=== PATIENT | female | born 1975 | race Caucasian/White ===

== ENCOUNTER → 2016-08-18 | Outpatient (CLI) | payer BC ==
[~2016-08-18] VITALS: Ht 167.6 cm; Wt 65.3 kg
[~2016-08-18] MED LIST: BACTRIM DS TAB1 EACH PO; CELEXA20 MG PO; CIPROFLOXACIN500 M1 PO; GABAPENTIN 100100 MG PO; GRALISE300 MG PO; HYDROCODONE-AP1 EAC6; HYDROCODONE-AP1 EAC6 PO; IBUPROFEN 600600 M1 PO; KEFLEX500 MG PO; MEDROLDOSEPACK PO; MOBIC15 MG PO; NAPROSYN500 MG PO; NOHOMEMEDICATIONS; NORCO 5-325 TA1 EACH PO; PREDNISONE 20 M20 MG PO; PROZAC20 MG; VALIUM5 MG PO; ZPAK PO
--- NOTE | ~2016-08-18 | HPC ---
[facility] [place] [address] PAIN MANAGEMENT CONSULTATION Name: FELISA KIDD VIVIANE Room #: REG [facility]..#: [id number] Admission: 08/18/16 Attend Phys: Azeem Chance MD Discharge: Date of : 75 Report #: [id number] THIS REPORT FOR: //name// CC: Azeem Vaughn DATE OF SERVICE: 08/18/2016 CHIEF COMPLAINT: "Pain in my back and down into the legs." HISTORY OF PRESENT ILLNESS: The patient is a 41-year-old female who has been referred to the pain clinic for evaluation of back and leg pain. The patient has been experiencing pain and discomfort in the low back area. She has had problems with her back and has undergone surgery at the L5-S1 area in the past. She now is experiencing pain in the lower back area, which radiates into both buttocks, left and right. She described it as 8/10. She notes some numbness, tingling and weakness in both legs down into her feet. She describes her discomfort as constant, burning, shooting, crushing, sharp, stabbing and tender. Notes that the pain improves if she lies down and has noted improvement with use of heat. She has been experiencing pain in the left hip area as well. PAST MEDICAL HISTORY: Left kidney mass, anxiety. PAST SURGICAL HISTORY: Tonsillectomy 1984, tubal ligation 2004, appendectomy/gallbladder 2010, back surgery 2007. ALLERGIES: FLEXERIL cause migraines, TRAMADOL cause migraines. MEDICATIONS: Gabapentin 100 mg t.i.d., Celexa 20 mg daily. SOCIAL HISTORY: Smokes cigarettes, one-half pack of cigarettes per day. Drinks alcohol on special occasion. Denies use of recreational drugs. FAMILY HISTORY: She has 5 children, 3 of whom live at home with her now. REVIEW OF SYSTEMS: Questionnaire in the chart indicates of 14 areas of review, chronic sinus problems, loss of appetite, bowel changes, lightheadedness, numbness and tingling sensation in the lower extremities, depression, insomnia, fatigue, weakness, otherwise unremarkable. LABORATORY DATA: 1. MRI of the lumbar spine dated 05/04/2016, there is significant disk space narrowing with reactive marrow changes at L5-S1 with minimal retrolisthesis of L5-S1. Alignment otherwise satisfactory. 2. L5-S1 significant disk space narrowing with combination of both Modic 1 and Modic 2 endplate degenerative changes. Moderate posterior ridging and bulging [facility] [address] [place] [address] PAIN MANAGEMENT CONSULTATION Name: FELISA KIDD Room #: REG CLI [facility].#: [id number] Admission: 08/18/16 Attend Phys: Azeem Chance MD Discharge: Date of : 75 Report #: [id number] is identified as the canal tapers. The L5-S1 moderate diffuse posterior ridging without focal disk protrusion. 3. Some degenerative changes contact the right S1 nerve root, including the posterior ridging and facet degenerative changes. PHYSICAL EXAMINATION: Height 5 feet 6 inches, weight 65 kilograms, BMI 23.3. The patient has not fallen in the last 3 months. Does have pain and discomfort to palpation in the left lateral hip in the area of the bursa. Has pain and discomfort to palpation in the right and left posterior superior iliac spine areas. Experiences pain and discomfort with radiation around the left leg in the L4-L5 distribution. Has perception of numbness and tingling in both legs with some discomfort down into her feet. Walks with an antalgic gait. Left and right lateral bending, left and right lateral rotation are somewhat guarded. IMPRESSION: 1. Lumbar radiculopathy at the L4-L5 distribution. 2. Depression, takes Celexa. RECOMMENDATIONS: We discussed treatment options with the patient. Risks and benefits of the procedure were explained. A model was used to indicate the area of probable pathology. The patient elects to proceed. PROCEDURE NOTE: The patient was placed in the prone position. Her back was sterilely prepped with Betadine. A 0.25% bupivacaine was placed. A total of 80 mg Depo-Medrol, 40 mg triamcinolone was injected after appropriate placement of a 17-gauge Tuohy needle. The patient tolerated the procedure well. There were no complications. She remained in the pain clinic for an appropriate amount of time. She will follow up in the future as needed. Hopefully, she continues to improve. She will call us if she has any problems with her medications. We would like to thank you for letting us participate in her care. We hope she continues to improve. <ELECTRONICALLY SIGNED> By: Azeem Chance MD 08/31/16 [id number] [id number] Azeem Chance MD /donald
[2016-08-18 10:15] VITALS: BP 111/75
== END | disposition home or self-care (01) ==
LOC: PAIN 07:14
DX: M54.16 Radiculopathy, lumbar region (principal); F32.9 Major depressive disorder, single episode, unspecified; F41.9 Anxiety disorder, unspecified; F17.210 Nicotine dependence, cigarettes, uncomplicated; Z98.890 Other specified postprocedural states; Z90.49 Acquired absence of other specified parts of digestive tract

== ENCOUNTER → 2016-11-04 | Outpatient (CLI) | payer BC | LOC: RAD 11:39 | DX: Z12.31 Encounter for screening mammogram for malignant neoplasm of breast (principal) ==

== ENCOUNTER → 2016-11-11 | Outpatient (CLI) | payer BC | LOC: ULTRA 10:29 | DX: N63 Unspecified lump in breast (principal); N60.09 Solitary cyst of unspecified breast ==

== ENCOUNTER → 2016-12-23 | Outpatient (CLI) | payer BC | LOC: RAD 15:05 | DX: S62.524A Nondisplaced fracture of distal phalanx of right thumb, initial encounter for closed fracture (principal); M79.644 Pain in right finger(s); X58.XXXA Exposure to other specified factors, initial encounter; Y93.89 Activity, other specified; Y92.89 Other specified places as the place of occurrence of the external cause; Y99.8 Other external cause status ==

== ENCOUNTER → 2017-09-19 | Outpatient (CLI) | payer OTHER ==
[~2017-09-19] MED LIST changes: +BUTRANS1 EAC3 TRANSDERM; +GRALISE600 MG PO; +HYDROCODONE-AP1 EA11 PO; +MYDAYIS ER 25 M25 MG PO; +VENTOLIN HFA 1818 GM INH; +XANAX 0.5 MG0.5 MG PO
== END ==
LOC: RAD 15:15
DX: R05 Cough (principal)

== ENCOUNTER → 2018-03-14 | Outpatient (CLI) | payer OTHER ==
[~2018-03-14] MED LIST changes: -BUTRANS1 EAC3 TRANSDERM; -GRALISE600 MG PO; -HYDROCODONE-AP1 EA11 PO; -MYDAYIS ER 25 M25 MG PO; -VENTOLIN HFA 1818 GM INH; -XANAX 0.5 MG0.5 MG PO
== END ==
LOC: MRI 10:18
DX: M51.16 Intervertebral disc disorders with radiculopathy, lumbar region (principal); M48.062 Spinal stenosis, lumbar region with neurogenic claudication; N28.1 Cyst of kidney, acquired

== ENCOUNTER → 2018-04-28 | Outpatient (CLI) | payer OTHER ==
[~2018-04-28] VITALS: Ht 167.6 cm; Wt 74.9 kg
[~2018-04-28] MED LIST changes: +BUTRANS1 EAC3 TRANSDERM; +GRALISE600 MG PO; +HYDROCODONE-AP1 EA11 PO; +MYDAYIS ER 25 M25 MG PO; +VENTOLIN HFA 1818 GM INH; +XANAX 0.5 MG0.5 MG PO
--- NOTE | ~2018-04-28 | HPC ---
[facility] [place] [address] PAIN MANAGEMENT CONSULTATION Name: ISABELLAFELISA VIVIANE Room #: REG [facility] MJaylene.#: [id number] Admission: 04/28/18 Attend Phys: Azeem Chance MD Discharge: Date of : 75 Report #: [id number] THIS REPORT FOR: //name// CC: Azeem Vaughn DATE OF SERVICE: 04/28/2018 CHIEF COMPLAINT: Low back pain with pain in the anterior leg. FOLLOWUP HISTORY: The patient is a 42-year-old female, who has been seen in the pain clinic in the past because of lumbar radiculopathy. She has had epidural steroid injections in the past. She returns today indicating pain in the right thigh, hip and with pain radiating down into her leg and involving her foot. She notes pain and discomfort involving 3 of her toes. She has had some chronic pain problems since 2004 as well as 2007. She describes the pain as a constant, burning, shooting, crushing, sharp, and stabbing discomfort. She rates it as a 6/10. She notes pain is exacerbated with bending and walking and some improvement with lying down. She has tried heat. She has tried prednisone and has noticed need for increased use of hydrocodone. She denies any loss of bowel or bladder control at this juncture. PAST MEDICAL HISTORY: She has left kidney mass and anxiety. PAST SURGICAL HISTORY: She has tonsillectomy in 1984, tubal ligation in 2004, appendectomy/cholecystectomy in 2010, and back surgery in 2007. CURRENT MEDICATIONS: Dextroamphetamine, Mydayis ER 25 mg capsules q.24 hours, Xanax 0.5 mg, [place] 5/325 one p.o. q.4-6 hours, Neurontin 300 mg t.i.d., and Celexa 20 mg total of 40 mg daily. ALLERGIES: THE PATIENT IS ALLERGIC TO SOMA, FLEXERIL, WHICH CAUSES MIGRAINES, AND TRAMADOL, WHICH CAUSES MIGRAINES. SOCIAL HISTORY: She smokes cigarettes, one half pack of cigarettes per day. She drinks alcoholic beverages on social occasions. She denies use of recreational drugs. PAIN CLINIC ASSESSMENT AND PQRS: 1. Osteoarthritis. The patient is not being treated for osteoarthritis. 2. Rheumatoid arthritis. The patient has not been treated for rheumatoid arthritis. 3. Pain intensity is 6/10. 4. Fall risk. The patient has not fallen in the last 3 months. 5. Blood thinner. The patient is not on a blood thinning medication. 6. History of hypertension. The patient is not being [place] [address] PAIN MANAGEMENT CONSULTATION Name: FELISA MASON VIVIANE Room #: REG [facility] Aditi.#: [id number] Admission: 04/28/18 Attend Phys: Azeem Chance MD Discharge: Date of : 75 Report #: [id number] 7. Opioid therapy greater than 6 weeks. The patient is not on an opioid regimen. 8. Risk assessment tool 4/moderate risk for opioids. 9. Functional assessment tool 51/70. 10. Recreational drug use. The patient denies use of recreational drugs. 11. Tobacco: The patient is a current tobacco user on a daily basis. We have discussed the benefits of decreasing use of tobacco with the patient. 12. Alcohol: The patient denies use of alcoholic beverages on a regular basis. PHYSICAL EXAMINATION: GENERAL: The patient is a well-developed and well-nourished white female. She appears her stated age. She is alert and oriented x 3. Affect is appropriate. Speech is fluent. Height is 5 feet 6 inches, weight is 165 pounds, and BMI is 26.7. VITAL SIGNS: Blood pressure is 109/78, pulse is 109, respiratory rate is 14, and room air saturation is 98%. HEENT: Normocephalic, atraumatic. Extraocular eye muscles intact. Sclerae nonicteric. Mucous membranes are moist. NECK: Without adenopathy or JVD. HEART: Regular rate. S1, S2. LUNGS: Clear to auscultation without rhonchi or rales. ABDOMEN: Nontender. Bowel sounds present. MUSCULOSKELETAL: Upper extremity muscle strength is judged to be 5/5 for the major muscle groups. The patient is without significant scoliosis, kyphosis, or lordosis. The patient has a well-healed scar in the lower portion of her back. She has pain and discomfort radiating down the right leg in the anterior portion and the lateral portion of her thigh and about the L4-L5 distribution. The patient also has some numbness and tingling down in her foot involving the lateral 3 toes. LABORATORY DATA: MRI of the lumbar spine dated 03/14/2018: 1. L1-L2: Normal. L2-L3: Normal: L3-L4: Normal. L4-L5: Minimal facet arthropathy bilaterally; otherwise, normal. 2. L5-S1. Previous right L5 laminectomy, zwmrszkd-ko-gjztom degenerative disk disease. Mild broad-based disk bulge. Mild facet arthropathy on the right. No spinal stenosis. The right L5 nerve foramen is narrowed. IMPRESSION: 1. Previous right L5 hemilaminectomy. 2. At L5-S1, mild broad-based disk bulge. The disk bulge is slightly improved since the previous study on 04/2016. Lukaiirr-rp-[id number] degenerative disk disease, unchanged. 3. Lumbar radiculopathy with pain radiating down into the right foot and involving the lateral portion of her foot. RECOMMENDATIONS: We have discussed treatment options with the patient. At this [facility] [address] [place] [address] PAIN MANAGEMENT CONSULTATION Name: FELISA MASON VIVIANE Room [facility]: [facility] [id number] Admission: 04/28/18 Attend Phys: Azeem Chance MD Discharge: Date of : 75 Report #: [id number] juncture, we will have the patient try Gralise, she is at 900. We will try to get her to 1800. We will notice whether or not that would be beneficial. The patient will also try Butrans 5 mg per hour patch. She will wear it for 7 days and change to meet 7 days. Hopefully, she will find that this is helpful. If her pain continues and persist, we will consider the possibility of an epidural injection. We would like to thank you for letting us to participate in her care. We hope she continues to improve. <ELECTRONICALLY SIGNED> By: Azeem Chance MD 05/08/18 1125 1431 [id number] Azeem Chance MD /PMT
[2018-04-28 11:04] VITALS: BP 109/78
== END ==
LOC: PAIN 06:49
DX: M51.16 Intervertebral disc disorders with radiculopathy, lumbar region (principal); M96.1 Postlaminectomy syndrome, not elsewhere classified; M79.671 Pain in right foot

== ENCOUNTER → 2018-05-10 | Outpatient (CLI) | payer OTHER ==
[~2018-05-10] VITALS: Ht 167.6 cm; Wt 73.9 kg
--- NOTE | ~2018-05-10 | HPC ---
[facility] [place] [address] [place] [address] PAIN MANAGEMENT CONSULTATION Name: ISABELLAFELISAPeterson PAN Room #: REG [facility] M..#: [id number] Admission: 05/10/18 Attend Phys: Azeem Chance MD Discharge: Date of : 75 Report #: [id number] THIS REPORT FOR: //name// CC: Azeem Vaughn DATE OF SERVICE: 05/10/2018 CHIEF COMPLAINT: "The medication may gave me diarrhea. I was sleepy and mean." FOLLOWUP HISTORY: The patient is a 42-year-old female who has been followed in the pain clinic. As you recall, she has lumbar radiculopathy. She has undergone epidural steroid injection in the past. This was back in 2017. She continues to have pain, which is problematic. She rates it as an 8/10. It significantly impacts her activities of daily living. She was started on Gralise. She found that medication was beneficial and has been beneficial. She had tried to use gabapentin in the past. Gabapentin caused too many side effects. She is able to take the Gralise, notes that the numbness down in her foot has improved. Has less of numb and tingling sensation in the anterior portion of her leg and the L5 distribution. Still has pain in the lower portion of her back. Notes the pain is a sharp, burning, crushing, stabbing discomfort that radiates down still in the L4-L5 distribution of her leg. She states that the Butrans patch caused her to be mean. States that she was quite sleepy during the use of this medication. Also, developed diarrhea. For these reasons, she would like to discontinue use of the Butrans patch. ALLERGIES: SOMA, FLEXERIL CAUSE MIGRAINES, TRAMADOL CAUSE MIGRAINES, BUTRANS CAUSE DIARRHEA, IRRITABILITY. CURRENT MEDICATIONS: Dextroamphetamine, Mydayis ER 25 mg capsules q. 24 hours, Xanax 0.5 mg, [place] 5/325 one p.o. q. 4-6 hours, Celexa 20 mg total of 40 per day. PAIN CLINIC ASSESSMENT AND PQRS: 1. Osteoarthritis. The patient is not being treated for osteoarthritis or rheumatoid arthritis. 2. Pain intensity 03/03. 3. Fall risk. The patient has not fallen in the last 3 months. 4. Blood thinner. The patient is not on a blood thinning medication. 5. Hypertension. The patient is not being treated for hypertension. 6. Opioid therapy greater than 6 weeks. The patient has used hydrocodone to help control her pain. 7. Risk assessment tool 4/moderate risk. 8. Functional assessment tool 51/70. 9. Recreational drug use. The patient denies use of recreational drugs. 10. Tobacco: The patient denies use of tobacco. [address] [address] PAIN MANAGEMENT CONSULTATION Name: FELISA MASON VIVIANE Room #: REG [facility]#: [id number] Admission: 05/10/18 Attend Phys: Azeem Chance MD Discharge: Date of : 75 Report #: [id number] 11. Alcohol: The patient denies use of alcoholic beverages. PHYSICAL EXAMINATION: GENERAL: The patient is a well-developed, well-nourished white female. Appears her stated age. She is alert and oriented x 3. Affect is appropriate. Speech is fluent. HEENT: Normocephalic, atraumatic. Extraocular eye muscles intact. Sclerae not injected. NECK: Without adenopathy or JVD. HEART: Regular rate. S1, S2. LUNGS: Clear to auscultation without rhonchi or rales. ABDOMEN: Nontender. Bowel sounds present. MUSCULOSKELETAL: 1. The patient has pain and discomfort in the lower portion of her back. Complains of pain that radiates down and around the right buttocks area and the L5/4 distribution involving her leg with pain. 2. Well-healed scar in the mid portion of her low back area. 3. The patient complains of some pain in the left side, which feels as though "something is inserted under her back." 4. The patient has noted that the numbness and tingling sensation, which she had in her foot and down into the lateral toes has improved on Gralise. LABORATORY DATA: 1. Previous right L5 laminectomy with continued post-laminectomy syndrome with pain. 2. L5-S1 broad-based disk bulge. This is slightly improved since previous study in 2016. Mild to moderate degenerative disk disease, unchanged. 3. Lumbar radiculopathy with pain radiating down to the right foot involving the lateral portion of her foot. RECOMMENDATIONS: At this juncture, the patient will continue with the Gralise, she is on 1800 mg. Finds that this medication is helpful. We will also have the patient resume use of the hydrocodone 7.5 mg 1 p.o. q. 4 to 6 hours. The patient will stop the Butrans patch. She will return to the pain clinic. If her pain continues to be problematic, we will consider a transforaminal epidural steroid injection in the left L4-L5 area. We would like to thank you for letting us participate in her care. We hope she continues to improve. By: [id number] Azeem Chance MD /ADIA
[2018-05-10 08:51] VITALS: BP 116/78
== END ==
LOC: PAIN 06:58
DX: M51.16 Intervertebral disc disorders with radiculopathy, lumbar region (principal); M79.671 Pain in right foot; M96.1 Postlaminectomy syndrome, not elsewhere classified; Z79.899 Other long term (current) drug therapy

== ENCOUNTER → 2018-06-09 | Outpatient (CLI) | payer OTHER ==
[~2018-06-09] VITALS: Ht 167.6 cm; Wt 74.9 kg
[2018-06-09 09:17] VITALS: BP 116/78
== END ==
LOC: PAIN 07:10
DX: M54.5 Low back pain (principal); R20.2 Paresthesia of skin; M79.604 Pain in right leg; G89.29 Other chronic pain; F17.210 Nicotine dependence, cigarettes, uncomplicated; Z72.89 Other problems related to lifestyle; Z79.899 Other long term (current) drug therapy; Z79.891 Long term (current) use of opiate analgesic

== ENCOUNTER → 2018-07-07 | Outpatient (CLI) | payer OTHER ==
[~2018-07-07] VITALS: Ht 167.6 cm; Wt 76.2 kg
[~2018-07-07] MED LIST changes: +CEFDINIR300 MG PO; +PROMETHAZINE-C473 ML PO
--- NOTE | ~2018-07-07 | HPC ---
[facility] [address] [address] [address] PAIN MANAGEMENT CONSULTATION Name: ISABELLAFELISAPeterson PAN Room #: REG [facility] M..#: [id number] Admission: 07/07/18 Attend Phys: Azeem Chance MD Discharge: Date of : 75 Report #: [id number] THIS REPORT FOR: //name// CC: Azeem Vaughn DATE OF SERVICE: 07/07/2018 CHIEF COMPLAINT: Here for medication renewal. Notes that the pain is worse since the weather has changed in the last couple of days. FOLLOWUP HISTORY: The patient is a 42-year-old female who has been followed in the pain clinic because of chronic pain. As you recall, she suffers from lumbar radiculopathy. She has undergone epidural steroid injections in the past. They have been beneficial. Last injection was 2016. Continues to find the pain as problematic. Feels that her medications are helpful. Rates her pain as an 8/10 today. He has been 6 in the past. She has noted that the weather has changed and because of that has noted some worsening of her pain over the last couple of days during this change in weather. Feels that her medications overall working reasonably well. Has found that Gralise is beneficial as well as her hydrocodone. She continues to have pain and discomfort involving the L5 nerve root in the posterior portion of her leg, with some numbness and tingling. She was doing some work while at home. After sitting for a while on the floor, she found it difficult to get up. Notes some increased muscle stiffness. Overall, things are going reasonably well, not have any problems with her medications. Keeps her medications in a guarded area. ALLERGIES: SOMA, FLEXERIL CAUSE MIGRAINES, TRAMADOL CAUSE MIGRAINES, BUTRANS CAUSE DIARRHEA AND IRRITABILITY. MEDICATIONS: Dextroamphetamine, Mydayis ER 25 mg, Xanax 0.5 mg, [place] 5 mg 1 p.o. every 4 hours, Celexa 20 mg, total of 40 mg daily. PAIN CLINIC ASSESSMENT/PQRS: 1. Osteoarthritis. The patient is not being treated for osteoarthritis or rheumatoid arthritis. 2. Height 5 feet 6 inches, weight 168 pounds, BMI is 27. 3. Vital signs: Blood pressure 126/85, pulse 105, respiratory rate 16, room air saturation 98%. 4. Pain intensity 03/03. 5. Fall risk. The patient has not fallen in the last 3 months. 6. Blood thinner. The patient is not on a blood thinning medication. 7. Hypertension. The patient is not being treated for hypertension. 8. Opioids, the patient receives her medication from one source, the pain clinic. 9. Risk assessment tool, 4, moderate for use of opioid medication. [address] [address] PAIN MANAGEMENT CONSULTATION Name: FELISA MASON VIVIANE Room #: REG CLI ..#: [id number] Admission: 07/07/18 Attend Phys: Azeem Chance MD Discharge: Date of : 75 Report #: [id number] 10. Functional assessment tool, . 11. Recreational drug use: The patient denies. 12. Tobacco: The patient smokes one-half pack of cigarettes per day and smoked for the last 20 years. Again, we discussed with the patient the benefits of smoking cessation along with possible complications of continued use. 13. Alcohol: The patient rarely uses alcoholic beverages. PHYSICAL EXAMINATION: GENERAL: The patient is a well-developed, well-nourished white female. Appears her stated age. She is alert and oriented x 3. Her affect is appropriate. Speech is fluent. HEENT: Normocephalic, atraumatic. Extraocular eye muscles intact. Sclerae nonicteric. Mucous membranes are moist. NECK: Without adenopathy or JVD. HEART: Regular rate. S1, S2. LUNGS: Clear to auscultation without rhonchi or rales. ABDOMEN: Nontender. Bowel sounds present. MUSCULOSKELETAL: The patient has some pain and discomfort in the lower extremities. Upper extremity muscle strength is judged 5/5 for the major muscle groups in the upper extremity. The patient has some pain and discomfort in the L4-L5 distribution involving her leg. She has a well-healed scar in midline portion of her low back. Complains of some pain and discomfort in the left side when she was sitting on the floor and with change in the weather. Some numbness and tingling in the foot, which has continued to improve and stabilized with use of Gralise. IMPRESSION: 1. History of right L5 laminectomy. 2. L5-S1 mild bulge with lhsagbtq-qw-uywdrr degenerative disk disease. 3. Spondylolisthesis. 4. Chronic back pain treated with opioid therapy. RECOMMENDATIONS: We discussed treatment options with the patient. We again discussed the possible reasons for an exacerbation of her pain. The weather pattern has changed. The barometric pressure continues to vacillate back and forth. This is usually associated with a worsening of pain and discomfort. Feels that her medications are working reasonably well. She is taking the medication as prescribed. Does not have any problems with the medications. Again, we discussed the possible complications of opioid use, which could be addiction as well as decreased efficacy of the medication secondary to development of tolerance. Overall, she feels that things are going reasonably well and would like to have her medications renewed. A script for medications of hydrocodone 5/325 has been written. She will follow up in the future as [facility] [address] [place] [address] PAIN MANAGEMENT CONSULTATION Name: FELISA MASON VIVIANE Room #: REG CLI M.R.#: [id number] Admission: 07/07/18 Attend Phys: Azeem Chance MD Discharge: Date of : 75 Report #: [id number] needed. We would like to thank you for letting us participate in her care. We hope she continues to improve. A script for Ade has also been rewritten. By: [id number] Azeem Chance MD /nt
[2018-07-07 09:09] VITALS: BP 126/85
== END ==
LOC: PAIN 08:51
DX: M51.16 Intervertebral disc disorders with radiculopathy, lumbar region (principal); M43.16 Spondylolisthesis, lumbar region; M19.90 Unspecified osteoarthritis, unspecified site; I10 Essential (primary) hypertension; F17.210 Nicotine dependence, cigarettes, uncomplicated; Z88.8 Allergy status to other drugs, medicaments and biological substances; Z98.890 Other specified postprocedural states; Z79.891 Long term (current) use of opiate analgesic; Z79.899 Other long term (current) drug therapy

== ENCOUNTER → 2018-08-04 | Outpatient (CLI) | payer OTHER ==
[~2018-08-04] VITALS: Ht 167.6 cm; Wt 77.7 kg
--- NOTE | ~2018-08-04 | HPC ---
[facility] [place] [address] PAIN MANAGEMENT CONSULTATION Name: ISABELLAFELISAPeterson PAN Room #: REG [facility] M.R.#: [id number] Admission: 08/04/18 Attend Phys: Azeem Chance MD Discharge: Date of : 75 Report #: [id number] THIS REPORT FOR: //name// CC: Azeme Vaughn DATE OF SERVICE: 08/04/2018 CHIEF COMPLAINT: Here for medication renewal. FOLLOWUP HISTORY: The patient is a 43-year-old female who has been followed in the Pain Clinic. As you recall, she has chronic pain. Suffered from lumbar radiculopathy. She has undergone epidural steroid injections in the past. She found that they have been somewhat beneficial. She continues to have pain, which is problematic. Feels that her over all use of opioid medications provides some benefit. She has noticed a worsening of her pain, given that the weather has changed. Today is about 25 degrees outside. Threatening to rain and snow. She has been working quite a bit of work. There has been mandatory work. States that she ____. She has been lifting pipes. This has increased her pain and discomfort. A couple of times where she slipped, but did not fall. Those episodes have increased her pain. ALLERGIES: SOMA, FLEXERIL, CAUSE MIGRAINES, TRAMADOL CAUSE MIGRAINES, BUTRANS CAUSE DIARRHEA AND IRRITABILITY. MEDICATIONS: Dextroamphetamine, Mydayis ER 25 mg, Xanax 0.5 mg, [place] 5 mg 1 p.o. q. 4 hours, Celexa 20 mg total of 40 mg daily. PAIN CLINIC ASSESSMENT/PQRS: 1. Osteoarthritis. The patient is not being treated for osteoarthritis or rheumatoid arthritis. 2. Height 5 feet 6 inches, weight 171 pounds, BMI is 27.7. 3. Vital signs: Blood pressure 119/74, pulse 111, respiratory rate 14, room air saturation is 100%. 4. Pain intensity, 03/03. 5. Fall risk. The patient has not fallen, but did felt that she slipped a couple of times at work and may have increased her pain and discomfort. 6. Blood thinner. The patient is not on a blood thinning medication. 7. Hypertension. The patient is not being treated for hypertension. 8. Opioid greater than 6 weeks. The patient receives her medication [facility]. 9. Risk assessment tool 4/moderate risk for opioid use. 10. Functional assessment tool, 51/70. 11. Recreational drug use. The patient denies use of recreational drugs. 12. Tobacco: The patient smokes daily. Again, we discussed the benefits of smoking cessation. The patient smokes half pack of cigarettes per day and has [address] [address] PAIN MANAGEMENT CONSULTATION Name: FELISA MASON Room #: REG CL Renny.Mitch.#: [id number] Admission: 08/04/18 Attend Phys: Azeem Chance MD Discharge: Date of : 75 Report #: [id number] smoked for about the last 20 years. 13. Alcohol: The patient denies use of alcoholic beverages. PHYSICAL EXAMINATION: GENERAL: The patient is a well-developed, well-nourished white female. Appears her stated age. She is alert and oriented x 3. Affect is appropriate. Speech is fluent. HEENT: Normocephalic, atraumatic. Extraocular eye muscles intact. Sclerae nonicteric. Mucous membranes are moist. NECK: Without adenopathy or JVD. HEART: Regular rate. S1, S2. LUNGS: Clear to auscultation without rhonchi or rales. ABDOMEN: Nontender. Bowel sounds present. MUSCULOSKELETAL: The patient has pain and discomfort in the lower extremities. Upper extremity muscle strength is judged to be 5/5 for the major muscle groups. The patient has well-healed scar in the midline portion of her low back. Continues to have some discomfort in the left side. Numbness and tingling down into her foot that improves with the use of Gralise. IMPRESSION: 1. History of right L5 laminectomy. 2. L5-S1 mild bulge with [id number] degenerative disk disease. 3. Spondylolisthesis. 4. Chronic low back pain treated with opioid medications. RECOMMENDATIONS: We discussed treatment options with the patient. At this juncture, we will continue with her current medical regimen. Risks and benefits of opioid medications were again discussed. Possible complications of opioid use continued to be a possibility of development of dependence as well as less effectiveness from the opioids because of tolerance. The patient feels her medications are going helpful and beneficial. She has enabled her to be gainfully employed. Feels overall that things are going reasonably well and would like to continue their use. A script for her medications has been rewritten. The patient has signed another contract with the Pain Clinic that she will take her medications as prescribed. A script for hydrocodone 7.5 mg 1 p.o. q.i.d. had been written. The patient will also continue with the Gralise 600 mg 1 p.o. daily and hydrocodone. By: [id number] Azeem Chance MD /nt
[2018-08-04 09:52] VITALS: BP 119/79
--- NOTE | 2018-08-04 10:01 | NUR ---
Pain Clinic Assessment: 1. History of Osteoarthritis: Not Applicable History of Rheumatoid Arthritis: Not Applicable 2. Height: 5 ft. 6 in. 167.6 cm. Weight: 171.4 lb. oz. 77.747 kg. Patient's BMI: 27.7 3. Vital Signs: BP: 119/79 Pulse: 111 Resp: 14 Temp: 02 Sat: 100 ECG Mon: 4. Pain Intensity: 8 5. Fall Risk: Dizziness: N Needs help standing or walking: N Fallen in the last 3 months: N Fall risk comments: 6. Patient on Blood Thinner: None 7. History of Hypertension: N 8. Opioid Therapy greater than 6 weeks: Y Opiate Contract Signed: 06/09/18 9. Risk Assessment Tool Provided: 4-MODERATE RISK 10. Functional Assessment Tool: 11. Recreational Drug Use: Past greater than 3 mos Drug Type: Tobacco Use: Current Every Day Smoker Tobacco Type: Cigarettes Amount or Packs/day: 0.5 How Many Years: 20 Alcohol Use: No Frequency: Quant:
== END ==
LOC: PAIN 06:49
DX: M51.16 Intervertebral disc disorders with radiculopathy, lumbar region (principal); M43.16 Spondylolisthesis, lumbar region; M96.1 Postlaminectomy syndrome, not elsewhere classified; Z79.891 Long term (current) use of opiate analgesic; Z79.899 Other long term (current) drug therapy

== ENCOUNTER → 2018-09-01 | Outpatient (CLI) | payer OTHER ==
[~2018-09-01] VITALS: Ht 167.6 cm; Wt 78.1 kg
[2018-09-01 09:01] VITALS: BP 120/83
--- NOTE | 2018-09-01 09:12 | NUR ---
Pain Clinic Assessment: 1. History of Osteoarthritis: Not Applicable History of Rheumatoid Arthritis: Not Applicable 2. Height: 5 ft. 6 in. 167.6 cm. Weight: 172.2 lb. oz. 78.109 kg. Patient's BMI: 27.8 3. Vital Signs: BP: 120/83 Pulse: 105 Resp: 16 Temp: 02 Sat: 98 ECG Mon: 4. Pain Intensity: 8 5. Fall Risk: Dizziness: N Needs help standing or walking: N Fallen in the last 3 months: N Fall risk comments: 6. Patient on Blood Thinner: None 7. History of Hypertension: N 8. Opioid Therapy greater than 6 weeks: Y Opiate Contract Signed: 06/09/18 9. Risk Assessment Tool Provided: 4-MODERATE RISK 10. Functional Assessment Tool: 11. Recreational Drug Use: Never Drug Type: Tobacco Use: Current Every Day Smoker Tobacco Type: Cigarettes Amount or Packs/day: 1/2 PACK How Many Years: Alcohol Use: No Frequency: Quant:
--- NOTE | 2018-09-01 16:49 | HPC ---
[facility] [address] [address] PAIN MANAGEMENT CONSULTATION Name: FELISA MASON VIVIANE Room #: REG [facility] M.R.#: [id number] Admission: 09/01/18 Attend Phys: Azeem Chance MD Discharge: Date of : 75 Report #: [id number] THIS REPORT FOR: //name// CC: Azeem Vaughn MD DATE OF SERVICE: 09/01/2018 CHIEF COMPLAINT: Here for medication renewal. HISTORY: The patient is a 43-year-old female who has been followed in the pain clinic. She suffers from chronic pain. Finds that complex medical management with opioid medications are helpful. Continues to suffer from lumbar radiculopathy. She has undergone epidural steroid injections in the past. They have been beneficial. At this point, she has returned for renewal of her medications. Overall, she continues to work. Notes that the weather, which is 7 degrees today has increased her pain and discomfort. She feels that overall things are going reasonably well. She would like to have her medications renewed. It is slated and had freezing rain. She has not fallen. She has returned today for renewal of her medications. ALLERGIES: SOMA, FLEXERIL -- cause migraines, TRAMADOL -- cause migraines, BUTRANS -- cause diarrhea and irritability. MEDICATIONS: Dextroamphetamine, Mydayis ER 25 mg, Xanax 0.5 mg, [place] 5 mg 1 p.o. q.i.d., Celexa 20 mg total of 40 mg daily. PAIN CLINIC ASSESSMENT/PQRS: 1. The patient has not been treated for osteoarthritis or rheumatoid arthritis. 2. Height 5 feet 6 inches, weight 172 pounds, BMI is 27.9. 3. Vital signs: Blood pressure 120/83, pulse 105, respiratory rate 16, room air saturation 98%. 4. Pain intensity 03/03. 5. Fall risk. The patient has not fallen in the last 3 months. 6. Blood thinner. The patient is not on a blood thinning medication. 7. Opioids. The patient receives her medications from [facility]. 8. Risk assessment tool 4/moderate use for opioids. 9. Functional assessment tool 51/70. 10. Recreational drug use. The patient denies use of recreational drugs. 11. Tobacco: The patient smokes one-half pack of cigarettes per day and has smoked for about 20 years. We again reiterated the benefits of smoking cessation. 12. Alcohol. The patient denies use of alcoholic beverages. PHYSICAL EXAMINATION: [facility] [address] [place] [address] PAIN MANAGEMENT CONSULTATION Name: FELISA MASON Room #: REG [facility].#: [id number] Admission: 09/01/18 Attend Phys: Azeem Chance MD Discharge: Date of : 75 Report #: [id number] GENERAL: The patient is a well-developed, well-nourished white female. Appears her stated age. She is alert and oriented x 3. Her affect is appropriate. Speech is slow. HEENT: Normocephalic, atraumatic. Extraocular eye muscles intact. Sclerae nonicteric. Mucous membranes are moist. NECK: Without adenopathy or JVD. HEART: Regular rate and rhythm. S1, S2. LUNGS: Clear to auscultation without rhonchi or rales. ABDOMEN: Nontender. Bowel sounds present. MUSCULOSKELETAL: Upper extremity muscle strength judged to be 5/5 for the major muscle groups in the upper extremity. The patient has some pain and discomfort has a well-healed scar in midline portion of her low back. Continues to have some pain and discomfort in the left side. Some numbness and tingling. It sometimes radiates down into her foot and improves with use of Gralise. IMPRESSION: 1. History of right lumbar laminectomy. L5-S1 bulge with moderate to severe degenerative disk disease. 2. Spondylolisthesis. 3. Chronic low back pain treated with opioid medications. RECOMMENDATIONS: We discussed treatment options with the patient. At this juncture, she will continue with her current medications. She feels the medications are helpful. She is able to engage in activities of daily living. She does have a job that is somewhat physical. Finds that this medication is beneficial. Keeps her medications in a guarded area. A script for her medications of Gralise 600 mg 1 p.o. t.i.d., hydrocodone 7.5 mg one p.o. q. 4 hours p.r.n. have been written. We would like to thank you for letting us participate in her care. We hope she continues to improve. <ELECTRONICALLY SIGNED> By: Azeem Chance MD 09/01/18 [id number] Azeem Chance MD /ADIA
== END ==
LOC: PAIN 07:11
DX: M51.16 Intervertebral disc disorders with radiculopathy, lumbar region (principal); M43.16 Spondylolisthesis, lumbar region; G89.29 Other chronic pain; Z79.891 Long term (current) use of opiate analgesic; Z79.899 Other long term (current) drug therapy

== ENCOUNTER → 2018-09-27 | Outpatient (CLI) | payer OTHER ==
[~2018-09-27] VITALS: Ht 167.6 cm; Wt 78.5 kg
[~2018-09-27] MED LIST changes: +AMITRIPTYLINE H10 M3 PO; +ZANAFLEX2 MG PO
--- NOTE | ~2018-09-27 | HPC ---
[facility] [place] [address] [place] [address] PAIN MANAGEMENT CONSULTATION Name: ISABELLAFELISA VIVIANE Room #: REG [facility] M..#: [id number] Admission: 09/27/18 ������������������ Attend Phys: Azeem Chance MD Discharge: ������������������ Date of : 75 Report #: [id number] THIS REPORT FOR: //name// CC: Azeem Vaughn DATE OF SERVICE: 11/17/2018 CHIEF COMPLAINT: Here for medication renewal. HISTORY: The patient is a 43-year-old female who has been followed in the pain clinic because of chronic pain involving her low back. She has been treated with complex medical management of opioid medications. She has undergone epidural steroid injections in the past. She returns today and rates her pain as an 8/10. She rates this as experiencing pain that radiates down in the low back area down to the right leg and even note some numbness of her toes. There is a burning component to it. She notes it is exacerbated by walking, sitting, standing and improves somewhat when lying down, use of heat and when she stretches. She notes that the weather changes have played havoc on her pain as well. ALLERGIES: SOMA, FLEXERIL CAUSE MIGRAINES, TRAMADOL CAUSE MIGRAINES, BUTRANS CAUSE DIARRHEA AND IRRITABILITY. MEDICATIONS: Dextral, amphetamine, Mydayis ER 25 mg, Xanax 0.5 mg, [place] 5 mg 1 p.o. q.i.d., and Celebrex 20 mg total of 40 mg daily. PAIN CLINIC ASSESSMENT/PQRS: 1. The patient is not being treated for rheumatoid arthritis. She has some arthritic change in the lower portion of her back and has had surgery. 2. Height 5 feet 6 inches, weight 173 pounds, BMI is 27.9. 3. Vitals signs: Blood pressure 109/85, pulse 92, respiratory rate 14, and room air saturation 100%. 4. Pain intensity: 8/10. 5. Fall risk: The patient has not fallen in the last 3 months. 6. Blood thinner: The patient is not on a blood thinning medication. 7. Hypertension: The patient has not been treated for hypertension. 8. Opioids greater than 6 weeks. The patient receives her medications [facility]. 9. Risk assessment tool: Moderate for opioid use. 10. Functional assessment tool: 51/70. 11. Recreational drug use: The patient denies. 12. Tobacco: The patient smokes 1/2 pack of cigarettes per day, has smoked for the last 20 years. We have discussed the benefits of smoking cessation. 13. Alcohol: The patient denies frequent use of alcoholic beverages. [address] [address] PAIN MANAGEMENT CONSULTATION Name: ISABELLAFELISA VIVIANE Room #: REG CL M..#: [id number] Admission: 09/27/18 ������������������ Attend Phys: Azeem Chance MD Discharge: ������������������ Date of : 75 Report #: [id number] PHYSICAL EXAMINATION: GENERAL: The patient is a well-developed, well-nourished white female. Appears her stated age. She is alert and oriented x 3. Her affect is appropriate. Speech is fluent. HEENT: Normocephalic, atraumatic. Extraocular eye muscles intact. Sclerae are nonicteric. Mucous membranes moist. NECK: Without adenopathy or JVD. HEART: Regular rate. S1, S2. LUNGS: Clear to auscultation without rhonchi or rales. ABDOMEN: Nontender. Bowel sounds present. MUSCULOSKELETAL: Without significant scoliosis, kyphosis or lordosis. The patient has pain and discomfort, which she rates as an 8/10 in the low back area. She has pain that radiates down into the low back on the right down to her toes with numbness. ASSESSMENT: 1. Chronic right lumbar radicular pain status post laminectomy/failed back syndrome, L5-S1 bulge, moderate to severe degenerative disk disease. 2. Spondylolisthesis. 3. Chronic back pain treated with opioid medications. RECOMMENDATIONS: We discussed treatment options with the patient. At this juncture, we will continue with her medications. A script for her medications has been renewed. We again reviewed the possible complications of opioid medications, which could include less effective and secondary to development of tolerance as well as dependency. The patient feels medications are helpful. She would like to have them renewed. A script for Gralise 600 mg t.i.d., hydrocodone 7.5 mg q.i.d. and a Medrol Dosepak have been supplied to the patient. She will follow up in the near future. We would like to thank you for letting us participate in her care. We hope she continues to improve. ��������������������������������������������� ���������������������������������������� By: ��������������������������������������������� [id number] Azeem Chance MD /donald
[2018-09-27 14:38] VITALS: BP 109/85
--- NOTE | 2018-11-17 08:35 | NUR ---
Pain Clinic Assessment: 1. History of Osteoarthritis: Not Applicable History of Rheumatoid Arthritis: Not Applicable 2. Height: 5 ft. 6 in. 167.6 cm. Weight: 173.0 lb. oz. 78.472 kg. Patient's BMI: 27.9 3. Vital Signs: BP: 109/85 Pulse: 92 Resp: 14 Temp: 02 Sat: 100 ECG Mon: 4. Pain Intensity: 8 5. Fall Risk: Dizziness: Y Needs help standing or walking: N Fallen in the last 3 months: N Fall risk comments: 6. Patient on Blood Thinner: None 7. History of Hypertension: N 8. Opioid Therapy greater than 6 weeks: Y Opiate Contract Signed: 06/09/18 9. Risk Assessment Tool Provided: 4-MODERATE RISK 10. Functional Assessment Tool: 11. Recreational Drug Use: Never Drug Type: Tobacco Use: Current Every Day Smoker Tobacco Type: Cigarettes Amount or Packs/day: 1/2 How Many Years: 20 Alcohol Use: No Frequency: Quant:
== END ==
LOC: PAIN 07:06
DX: M51.37 Other intervertebral disc degeneration, lumbosacral region (principal); M43.16 Spondylolisthesis, lumbar region; G89.29 Other chronic pain; Z88.8 Allergy status to other drugs, medicaments and biological substances; Z79.899 Other long term (current) drug therapy; Z79.891 Long term (current) use of opiate analgesic

== ENCOUNTER → 2018-10-27 | Outpatient (CLI) | payer OTHER ==
[~2018-10-27] VITALS: Ht 167.6 cm; Wt 78.7 kg
--- NOTE | ~2018-10-27 | HPC ---
[facility] [address] [place] [address] PAIN MANAGEMENT CONSULTATION Name: ISABELLAFELISA VIVIANE Room #: REG [facility] M..#: [id number] Admission: 10/27/18 ������������������ Attend Phys: Azeem Chance MD Discharge: ������������������ Date of : 75 Report #: [id number] THIS REPORT FOR: //name// CC: Azeem Vaughn DATE OF SERVICE: 10/27/2018 CHIEF COMPLAINT: Chronic back pain. HISTORY: The patient is a 43-year-old female who has been followed in the Pain Clinic because of chronic pain. She has a history of lumbar radicular pain. She has undergone surgery in the past. She continues to have pain, which is problematic. Did note some pain in the low back area, which radiates down into her right leg with some numbness involving her toes. She notes a burning component to it. Rates her pain intensity as 8/10. She has been using her medications to help control the pain. She has undergone an epidural steroid injection in the past and noted some benefit from that. At this juncture, overall, things continue to be problematic. She would like to have a renewal of her medications. Denies any new bowel or bladder dysfunction. ALLERGIES: SOMA, FLEXERIL CAUSED MIGRAINES, TRAMADOL CAUSED MIGRAINES, BUTRANS CAUSED DIARRHEA AND IRRITABILITY. MEDICATIONS: Dextroamphetamine, Mydayis ER 25 mg, Xanax 0.5 mg, [place] 5 mg 1 p.o. q.i.d., Celexa 20 mg total mg of 40 daily PAIN CLINIC ASSESSMENT/PQRS: 1. The patient is not being treated for osteoarthritis or rheumatoid arthritis. 2. Height 5 feet 6 inches, weight 173 pounds, BMI is 28.0. 3. Vital signs: Blood pressure 119/89, pulse 94, respiratory rate 14, room air saturation 100%. 4. Pain intensity 03/03. 5. Fall risk. The patient has not fallen in the last 3 months. 6. Blood thinner. The patient is not on a blood thinning medication. 7. Opioid therapy. The patient is receiving opioid medications from the Pain Clinic and takes them as prescribed 8. Risk assessment tool for moderate for opioid use. 9. Functional assessment tool /. 10. Recreational drug use. The patient denies use of recreational drugs. 11. Tobacco: The patient has not smoked for the last 2 weeks. 12. Alcohol: The patient denies frequent use of alcoholic beverages. PHYSICAL EXAMINATION: GENERAL: The patient is a well-developed, well-nourished white female. Appears her stated age. She is alert and oriented x 3. [place] [address] PAIN MANAGEMENT CONSULTATION Name: FELISA MASON VIVIANE Room #: REG [facility] Bryant#: [id number] Admission: 10/27/18 ������������������ Attend Phys: Azeem Chance MD Discharge: ������������������ Date of : 75 Report #: [id number] is fluent. HEENT: Normocephalic, atraumatic. Extraocular eye muscles intact. Sclerae nonicteric. Mucous membranes are moist. NECK: Without adenopathy or JVD. LUNGS: Clear to auscultation. HEART: Regular rate. ABDOMEN: Nontender. MUSCULOSKELETAL: Upper extremity, 5/5 for the major muscle groups in the upper extremity. The patient has a well-healed scar in the midline and lower portion of her back. Continues to have pain and discomfort today and describes his pain radiating down to the right leg involving her toes. IMPRESSION: 1. History of right lumbar laminectomy L5-S1 bulge with moderate to severe degenerative disk disease. 2. Spondylolisthesis ____. 3. Chronic low back pain treated with opioid medication. RECOMMENDATIONS: We discussed treatment options with the patient. At this juncture, we will continue with her medications. She is aware of that opioid medications can be helpful. They can become less effective at this time goes by secondary to development of tolerance. The patient is also aware in the immediate that opioid medications can cause development of dependency. She would like to continue with her medications. Feels that the medications were helpful. Keeps them in a guarded area. A script for her medications of Gralise 600 mg 3 tablets at dinner time, hydrocodone 7.5 mg 1 p.o. q.i.d. q. 4-6 hours, Elavil 10 mg at bedtime and tizanidine 2 mg have been written. The patient will continue with her current medical regimen. She will call us if she has any concerns. We would like to thank you for letting us participate in her care. We hope she continues to improve. ��������������������������������������������� ���������������������������������������� By: ��������������������������������������������� [id number] Azeem Chance MD /donald
[2018-10-27 12:38] VITALS: BP 119/89
--- NOTE | 2018-10-27 12:48 | NUR ---
Pain Clinic Assessment: 1. History of Osteoarthritis: Not Applicable History of Rheumatoid Arthritis: Not Applicable 2. Height: 5 ft. 6 in. 167.6 cm. Weight: 173.4 lb. oz. 78.654 kg. Patient's BMI: 28.0 3. Vital Signs: BP: 119/89 Pulse: 94 Resp: 14 Temp: 02 Sat: 100 ECG Mon: 4. Pain Intensity: 8 5. Fall Risk: Dizziness: N Needs help standing or walking: N Fallen in the last 3 months: Y Fall risk comments: 6. Patient on Blood Thinner: None 7. History of Hypertension: N 8. Opioid Therapy greater than 6 weeks: Y Opiate Contract Signed: 06/09/18 9. Risk Assessment Tool Provided: 4-MODERATE RISK 10. Functional Assessment Tool: 11. Recreational Drug Use: Never Drug Type: Tobacco Use: Former Smoker Tobacco Type: Amount or Packs/day: How Many Years: Alcohol Use: No Frequency: Quant:
== END ==
LOC: PAIN 10-25 08:13
DX: M47.897 Other spondylosis, lumbosacral region (principal); M43.10 Spondylolisthesis, site unspecified; G89.29 Other chronic pain; Z88.8 Allergy status to other drugs, medicaments and biological substances; Z79.899 Other long term (current) drug therapy

== ENCOUNTER → 2018-12-29 | Outpatient (CLI) | payer OTHER ==
[~2018-12-29] VITALS: Ht 167.6 cm; Wt 78.0 kg
[~2018-12-29] MED LIST changes: +NEURONTIN600 MG PO
--- NOTE | ~2018-12-29 | HPC ---
[facility] [place] [address] PAIN MANAGEMENT CONSULTATION Name: FELISA MASON VIVIANE Room #: REG [facility] M..#: [id number] Admission: 12/29/18 ������������������ Attend Phys: Azeem Chance MD Discharge: ������������������ Date of : 75 Report #: [id number] THIS REPORT FOR: //name// CC: Azeem Vaughn DATE OF SERVICE: 12/29/2018 CHIEF COMPLAINT: Here for medication management. FOLLOWUP HISTORY: The patient is a 43-year-old female who has been followed in the Pain Clinic. She returns today for renewal of her medications. She rates her pain as an 8/10. Continues to have constant pain, which she describes as shooting with numbness and tingling. Notes that walking, sitting and activities can exacerbate her discomfort. She is experiencing pain in the low back area as well as pain down into her hips bilaterally. She has some discomfort in her knees. She has noted some numbness in her toes on the right foot. She has had surgery as you may recall in the L5-S1 area. Continues to have some pain in this dermatomal distribution. She denies any new bowel or bladder dysfunction. ALLERGIES: SOMA, FLEXERIL CAUSE MIGRAINES, TRAMADOL CAUSE MIGRAINES, BUTRANS CAUSE DIARRHEA AND IRRITABILITY. MEDICATIONS: Dextroamphetamine, Mydayis ER 25 mg, Zanaflex 0.5 mg, Narcan 5 mg 1 p.o. q.i.d., Celebrex 20 mg total of 40 mg daily. PAIN CLINIC ASSESSMENT/PQRS: 1. The patient is not being treated for rheumatoid arthritis. She has had some arthritic change in her low back area and has had surgery. 2. Height 5 feet 6 inches, weight is 172 pounds, BMI is 27.8. 3. Vital Signs: Blood pressure 120/85, pulse 91, respiratory rate 18, room air saturation 100%. 4. Pain intensity, 10 5. Fall history: The patient has not fallen in the last 3 months. 6. Blood thinner. The patient is not on a blood thinning medication. 7. History of hypertension. The patient is not being treated for hypertension. 8. Opioids greater than 6 weeks. The patient [facility]. 9. Risk assessment tool 4/moderate for opioid use. 10. Functional assessment tool, /70. 11. Recreational drug use. The patient denies. 12. Tobacco: The patient is a former smoker. 13. Alcohol: The patient denies frequent use of alcoholic beverages. PHYSICAL EXAMINATION: GENERAL: The patient is a well-developed, well-nourished white female. Appears [facility] [address] [place] [address] PAIN MANAGEMENT CONSULTATION Name: FELISA MASON VIVIANE Room #: REG [facility] M.Mitch.#: [id number] Admission: 12/29/18 ������������������ Attend Phys: Azeem Chance MD Discharge: ������������������ Date of : 75 Report #: [id number] her stated age. She is alert and oriented x 3. Her affect is appropriate. Speech is fluent. HEENT: Normocephalic, atraumatic. Extraocular eye muscles intact. Sclerae nonicteric. Mucous membranes are moist. NECK: Without adenopathy or JVD. HEART: Regular rate. S1, S2. LUNGS: Clear to auscultation. ABDOMEN: Nontender. Bowel sounds present. MUSCULOSKELETAL: Upper extremity muscle strength is judged to be 5-/5 in the major muscle groups in the upper extremity. The patient has well-healed scar in the midline area and lower portion of her back. Continues to have pain and discomfort that is radiating down into her right leg and involving her toe. IMPRESSION: 1. History of right lumbar laminectomy with bulge and severe degenerative disk disease. 2. Spondylolisthesis. 3. Chronic back pain treated with opioid medications. RECOMMENDATIONS: We discussed treatment options with the patient. At this juncture, we will continue with her current medication regimen. She feels that the [place] medication is helpful. She continues to take it as prescribed. She has used gabapentin. Gabapentin comes in a slow release formulation called Gralise. The patient felt that that was the medication that she has been taking. In reality, the patient has been taking gabapentin, which is a somewhat more of an immediate release medication. States that she has been taking 3 tablets of 600 mg strength at bedtime. States that use of the gabapentin medication has caused her to be super sleepy and has difficulty functioning. She only takes the medication in the weekend. We discussed the difference between Gralise and the more immediate release gabapentin medication. The gabapentin should be taken t.i.d. She should take 600 mg morning, midday and evening. Taking all 1800 mg of that medication at once of the immediate release gabapentin is thought to be the cause of her feeling so sleepy the following day. She realizes that she has been taking it somewhat incorrectly. She feels that she might glean more benefit if she takes it in the 600 mg t.i.d. fashion. She will start this, this weekend. Hopefully, she will find that she gets more pain relief as a result of that taking the medications in a 3-time per day dosing rather than a one-time dosing regimen. She will call us if she has any concerns. We would like to thank you for letting us participate in her care. We hope she continues to improve. ��������������������������������������������� ���������������������������������������� By: ��������������������������������������������� [id number] Azeem Chance MD /donald
[2018-12-29 14:56] VITALS: BP 120/85
--- NOTE | 2018-12-29 15:02 | NUR ---
Pain Clinic Assessment: 1. History of Osteoarthritis: Not Applicable History of Rheumatoid Arthritis: Not Applicable 2. Height: 5 ft. 6 in. 167.6 cm. Weight: 172.0 lb. oz. 78.019 kg. Patient's BMI: 27.8 3. Vital Signs: BP: 120/85 Pulse: 91 Resp: 18 Temp: 02 Sat: 100 ECG Mon: 4. Pain Intensity: 8 5. Fall Risk: Dizziness: N Needs help standing or walking: N Fallen in the last 3 months: N Fall risk comments: 6. Patient on Blood Thinner: None 7. History of Hypertension: N 8. Opioid Therapy greater than 6 weeks: Y Opiate Contract Signed: 06/09/18 9. Risk Assessment Tool Provided: 4-MODERATE RISK 10. Functional Assessment Tool: 11. Recreational Drug Use: Never Drug Type: Tobacco Use: Former Smoker Tobacco Type: Amount or Packs/day: How Many Years: Alcohol Use: No Frequency: Quant:
== END ==
LOC: PAIN 11-30 12:34
DX: M51.36 Other intervertebral disc degeneration, lumbar region (principal); M43.16 Spondylolisthesis, lumbar region; Z79.899 Other long term (current) drug therapy

== ENCOUNTER → 2019-01-24 | Outpatient (CLI) | payer OTHER ==
[~2019-01-24] VITALS: Ht 167.6 cm; Wt 78.5 kg
--- NOTE | ~2019-01-24 | HPC ---
[facility] [place] [address] [place] [address] PAIN MANAGEMENT CONSULTATION Name: FELISA MASON VIVIANE Room #: REG [facility] M..#: [id number] Admission: 01/24/19 ������������������ Attend Phys: Azeem Chance MD Discharge: ������������������ Date of : 75 Report #: [id number] THIS REPORT FOR: //name// CC: Azeem Vaughn DATE OF SERVICE: 01/24/2019 CHIEF COMPLAINT: Here for medication evaluation and renewal. HISTORY OF PRESENT ILLNESS: The patient is a 43-year-old female who has been followed in the pain clinic. As you recall, she continues to have pain, which is problematic. Her pain is mostly involving her low back. It involves her hips bilaterally with pain down into her legs to the level of the knee. She has some numbness in her toes on the right foot. Describes her discomfort as constant, sharp, shooting with numbness and tingling. Rates it as a 6-7 at this point. She has returned today with a desire to have her medications renewed. She has taken the medication as prescribed. She has had surgery in the past. ALLERGIES: SOMA, FLEXERIL CAUSE MIGRAINES, TRAMADOL CAUSE MIGRAINES, ____ CAUSE DIARRHEA AND IRRITABILITY. MEDICATIONS: Dextroamphetamine, Mydayis ER 25 mg, Zanaflex 0.5 mg, Narcan 5 mg 1 p.o. q.i.d., Celebrex 20 mg total of 40 mg daily. PAIN CLINIC ASSESSMENT AND PQRS: 1. The patient is not being treated for rheumatoid arthritis. She has some arthritic change in the low back area. She has had surgery. 2. Height 5 feet 6 inches, weight 173 pounds, BMI is 27.9. 3. VITAL SIGNS: Blood pressure 125/85, pulse 80, respiratory rate 16, room air saturation 97%. 4. Pain intensity 6.5-7. 5. Fall risk. The patient has not fallen in the last 3 months. 6. Blood thinner. The patient is not on a blood thinning medication. 7. Hypertension. The patient is not being treated for hypertension. 8. Opioids greater than 6 weeks. The patient [facility] her [facility]. 9. Risk assessment tool, moderate risk. 10. Functional assessment tool 51/70. 11. Recreational drug use. The patient denies active tobacco: The patient is a former smoker. 12. Alcohol: The patient denies frequent use of alcoholic beverages. PHYSICAL EXAMINATION: GENERAL: The patient is a well-developed, well-nourished white female. Appears her stated age. She is alert and oriented x 3. [place] [address] PAIN MANAGEMENT CONSULTATION Name: FELISA MASON VIVIANE Room #: REG [facility] Bryant#: [id number] Admission: 01/24/19 ������������������ Attend Phys: Azeem Chance MD Discharge: ������������������ Date of : 75 Report #: [id number] Speech is fluent. HEENT: Normocephalic, atraumatic. Extraocular eye muscles intact. Sclerae nonicteric. Mucous membranes are moist. NECK: Without adenopathy or JVD. HEART: Regular rate. S1, S2. LUNGS: Clear to auscultation. ABDOMEN: Nontender. Bowel sounds present. MUSCULOSKELETAL: Upper extremity muscle strength is judged to be 5-/5 for the major muscle groups in the upper extremity. The patient has pain in low back area. She has a well-healed scar in the midline area in the lower portion of her back. Continues to have some pain and discomfort that radiates down into her right leg, involves her toe. IMPRESSION: 1. History of right lumbar radiculopathy with bulging and severe degenerative disk disease. 2. Spondylolisthesis. 3. Chronic back pain treated with opioid medication. RECOMMENDATIONS: We discussed treatment options with the patient. At this juncture, we will continue with her medications. She feels her medications are helpful. She continues to be gainfully employed. We will continue with the gabapentin medication. We will also continue with her opioid medication. She is aware that opioid medications can be problematic in some patients. She feels that the hydrocodone is helpful and she would like to continue with it. She keeps it in a guarded area. She finds that tizanidine continues to be helpful with muscle spasms. She will continue with gabapentin 600 mg t.i.d. She has not had any complications from its use. We will continue with her medications. A new script for hydrocodone 7.5 mg 1 p.o. q.i.d. for pain control as well as tizanidine 2 mg every 8 hours p.r.n. have been rewritten. The patient will call us if she has any concerns. We will continue with her pain control using this complex medical management with opioids. We would like to thank you for letting us participate in her care. We hope she continues to improve. ��������������������������������������������� ���������������������������������������� By: ��������������������������������������������� [id number] Azeem Chance MD /donald
[2019-01-24 08:24] VITALS: BP 125/85
--- NOTE | 2019-01-24 08:27 | NUR ---
Pain Clinic Assessment: 1. History of Osteoarthritis: Not Applicable History of Rheumatoid Arthritis: Not Applicable 2. Height: 5 ft. 6 in. 167.6 cm. Weight: 173.0 lb. oz. 78.472 kg. Patient's BMI: 27.9 3. Vital Signs: BP: 125/85 Pulse: 98 Resp: 16 Temp: 02 Sat: 97 ECG Mon: 4. Pain Intensity: 6-7 5. Fall Risk: Dizziness: N Needs help standing or walking: N Fallen in the last 3 months: N Fall risk comments: 6. Patient on Blood Thinner: None 7. History of Hypertension: N 8. Opioid Therapy greater than 6 weeks: Y Opiate Contract Signed: 06/09/18 9. Risk Assessment Tool Provided: 4-MODERATE RISK 10. Functional Assessment Tool: 11. Recreational Drug Use: Never Drug Type: Tobacco Use: Former Smoker Tobacco Type: Amount or Packs/day: How Many Years: Alcohol Use: No Frequency: Quant:
== END ==
LOC: PAIN 06:44
DX: M51.16 Intervertebral disc disorders with radiculopathy, lumbar region (principal); M43.16 Spondylolisthesis, lumbar region; G89.29 Other chronic pain; Z79.891 Long term (current) use of opiate analgesic; Z79.899 Other long term (current) drug therapy

== ENCOUNTER → 2019-03-09 | Outpatient (CLI) | payer OTHER ==
[~2019-03-09] VITALS: Ht 167.6 cm; Wt 77.7 kg
[~2019-03-09] MED LIST changes: +TIZANIDINE HCL2 M1 PO
--- NOTE | ~2019-03-09 | HPC ---
[facility] [address] [place] [address] PAIN MANAGEMENT CONSULTATION Name: FELISA MASON VIVIANE Room #: REG [facility] M.Mitch.#: [id number] Admission: 03/09/19 Attend Phys: Azeem Chance MD Discharge: Date of : 75 Report #: [id number] THIS REPORT FOR: //name// CC: Azeem Vaughn DATE OF SERVICE: 03/09/2019 CHIEF COMPLAINT: Here for medication renewal, things are going well. HISTORY: The patient is a 43-year-old female who has been followed in the Pain Clinic. As you may recall, she suffers from chronic pain. She has had back surgery. Continues to have pain, which still is problematic. Has a numbness and shooting discomfort. Notes pain is worse with walking, sitting and activities of daily living. She continues to work. Has some involvement in her hips bilaterally. Has some numbness down into the toes on her right foot. Pain remains in the L5-S1 dermatomal distribution. She has returned today with the hopes of renewing her medications. ALLERGIES: SOMA, FLEXERIL CAUSE MIGRAINES, TRAMADOL CAUSE MIGRAINES, BUTRANS CAUSE DIARRHEA AND IRRITABILITY. MEDICATIONS: Dextroamphetamine, Mydayis ER 25 mg, Zanaflex 0.5 mg Narcan 5 mg 1 p.o. q.i.d., Celebrex 20 mg total of 40 mg daily. PAIN CLINIC ASSESSMENT AND PQRS: 1. The patient is not being treated for rheumatoid arthritis. She has arthritic changes in her back since surgery. 2. Height 5 feet 6 inches, weight 171 pounds, BMI is 27.6. 3. Vital Signs: Blood pressure 131/95, pulse 101, respiratory rate 16, room air saturation 98%. 4. Pain intensity, 03/03. 5. Fall risk. The patient has fallen in the last 3 months. She landed on her right side and was seen in the Emergency Room. She suffered some contusion and bruising. 6. Blood thinner. The patient is not on a blood thinning medication. 7. Hypertension. The patient is not on a hypertensive medication. 8. Opioids greater than 6 weeks. The patient receives her medication from [facility]. 9. Risk assessment tool, 4/moderate risk. 10. Functional assessment tool, 51/70. 11. Recreational drug use. The patient denies use of recreational drugs. 12. Tobacco: The patient is a former smoker. 13. Alcohol. The patient denies frequent use of alcoholic beverages. PHYSICAL EXAMINATION: [facility] [address] [place] [address] PAIN MANAGEMENT CONSULTATION Name: FELISA MASON Room #: REG [facility].#: [id number] Admission: 03/09/19 Attend Phys: Azeem Chance MD Discharge: Date of : 75 Report #: [id number] GENERAL: The patient is a well-developed, well-nourished white female. Appears her stated age. She is alert and oriented x 3. Her affect is appropriate. Speech is fluent. HEENT: Normocephalic, atraumatic. Extraocular eye muscles intact. Sclerae nonicteric. Mucous membranes are moist. NECK: Without adenopathy or JVD. HEART: Regular rate. S1, S2. LUNGS: Clear to auscultation. ABDOMEN: Nontender. Bowel sounds present. MUSCULOSKELETAL: Without significant scoliosis, kyphosis or lordosis. The patient has a well-healed scar in the lower portion of the midline and the lower portion of her back. She has pain in the midline area. Continues to complain of pain that radiates down to her right leg involving her toe L5-S1 dermatomal distribution on the right. IMPRESSION: 1. History of right lumbar laminectomy with bulge and severe degenerative disk disease. 2. Spondylolisthesis. 3. Chronic back pain treated with complex medical regimen using opioid medications. RECOMMENDATIONS: We discussed treatment options with the patient. At this juncture, she feels that the medication continues to be helpful. She continues to take medication as prescribed. She feels that the medication enable her to remain gainfully employed. She is taking as prescribed. There is no problem with dizziness or problems with her sensorium. She has returned today with a desire to continue with her medications. She is aware that opioid medications can be problematic in certain people. Some folks can develop dependency as well as less effectiveness secondary to tolerance. A script for her medications have been rewritten. She will continue with gabapentin 600 mg 1 p.o. t.i.d. A script for tizanidine 2 mg 1 p.o. b.i.d. and hydrocodone 7.5 mg 1 p.o. q.i.d. have been written. She will call us if she has any concerns. We would like to thank you for letting us participate in her care. We hope she continues to improve. By: [id number] Azeem Chance MD /donald
[2019-03-09 09:10] VITALS: BP 131/95
--- NOTE | 2019-03-09 09:17 | NUR ---
Pain Clinic Assessment: 1. History of Osteoarthritis: Not Applicable History of Rheumatoid Arthritis: Not Applicable 2. Height: 5 ft. 6 in. 167.6 cm. Weight: 171.2 lb. oz. 77.656 kg. Patient's BMI: 27.6 3. Vital Signs: BP: 131/95 Pulse: 101 Resp: 16 Temp: 02 Sat: 98 ECG Mon: 4. Pain Intensity: 8 5. Fall Risk: Dizziness: N Needs help standing or walking: N Fallen in the last 3 months: Y Fall risk comments: FELL GETTING OUT OF SHOWER/FELL ON RIGHT SIDE/WENT TO ER/HAS CONTUSIONS/BRUISING 6. Patient on Blood Thinner: None 7. History of Hypertension: N 8. Opioid Therapy greater than 6 weeks: Y Opiate Contract Signed: 06/09/18 9. Risk Assessment Tool Provided: 4-MODERATE RISK 10. Functional Assessment Tool: 11. Recreational Drug Use: Never Drug Type: Tobacco Use: Former Smoker Tobacco Type: Amount or Packs/day: How Many Years: Alcohol Use: No Frequency: Quant:
== END ==
LOC: PAIN 02-21 08:31
DX: M43.16 Spondylolisthesis, lumbar region (principal); M51.36 Other intervertebral disc degeneration, lumbar region; Z79.891 Long term (current) use of opiate analgesic

== ENCOUNTER → 2019-04-06 | Outpatient (CLI) | payer OTHER ==
[~2019-04-06] VITALS: Ht 167.6 cm; Wt 77.6 kg
[~2019-04-06] MED LIST changes: +HYDROCODON-ACE1 EAC7 PO; +TIZANIDINE HCL 22 M1 PO
[2019-04-06 09:08] VITALS: BP 138/96
--- NOTE | 2019-04-06 09:10 | NUR ---
Pain Clinic Assessment: 1. History of Osteoarthritis: Not Applicable History of Rheumatoid Arthritis: Not Applicable 2. Height: 5 ft. 6 in. 167.6 cm. Weight: 171.0 lb. oz. 77.565 kg. Patient's BMI: 27.6 3. Vital Signs: BP: 138/96 Pulse: 103 Resp: 16 Temp: 02 Sat: 99 ECG Mon: 4. Pain Intensity: 8-TODAY 5. Fall Risk: Dizziness: N Needs help standing or walking: N Fallen in the last 3 months: N Fall risk comments: FELL GETTING OUT OF SHOWER/FELL ON RIGHT SIDE/WENT TO ER/HAS CONTUSIONS/BRUISING 6. Patient on Blood Thinner: None 7. History of Hypertension: N 8. Opioid Therapy greater than 6 weeks: Y Opiate Contract Signed: 06/09/18 9. Risk Assessment Tool Provided: 4-MODERATE RISK 10. Functional Assessment Tool: 45 11. Recreational Drug Use: Never Drug Type: Tobacco Use: Current Every Day Smoker Tobacco Type: Cigarettes Amount or Packs/day: 4-5 CIGS How Many Years: 27 Alcohol Use: No Frequency: Quant:
--- NOTE | 2019-04-10 07:13 | HPC ---
[facility] [address] [place] [address] PAIN MANAGEMENT CONSULTATION Name: FELISA MASON VIVIANE Room #: REG [facility] M.R.#: [id number] Admission: 04/06/19 ������������������ Attend Phys: Dory Loyd Discharge: ������������������ Date of : 75 Report #: [id number] THIS REPORT FOR: //name// CC: Dory Vaughn DATE OF SERVICE: 04/06/2019 CHIEF COMPLAINT: Chronic back pain. HISTORY OF PRESENT ILLNESS: This is a 43-year-old female who returns to the pain clinic today for refill of her medications that she uses to help treat her ongoing low back pain, bilateral hip and leg pain with radiculopathy to her feet. She tells me lately she has been having lower back spasms as well. She is rating her pain today an 8/10 with sharp, shooting, numbness and tingling, worse with activity, sitting and stress better with her medications and heating pad. She denies any problems with constipation from her medications or daytime sleepiness. The patient tells me her pain was elevated due to stress today. She has been having numerous insurance issues. She tells me her cards were compromised and they shut off her credit card bank card; therefore, her automatic payments were not getting through, she is needing to have that reset up, so her insurance has returned today, so she is seeing us for last visit and we will discuss a taper schedule. Hopefully, she can get to see her primary doctor that may be cheaper for her since she does pay hospital fee and a doctor's fee here at our clinic. The patient verbalizes understanding of that. She does like coming here, but it is getting expensive for her for her medications, though they are very helpful in controlling her pain. She has been stable on her medicines for several months. ALLERGIES: TRAMADOL, BUTRANS, FLEXERIL AND SOMA. CURRENT LIST OF MEDICATIONS: Hydrocodone 7.5/325 four times a day, tizanidine 2 mg b.i.d. p.r.n., gabapentin 600 mg t.i.d., albuterol inhaler, dextroamphetamine and Celexa. PQRS: 1. The patient is not being treated for rheumatoid arthritis. She has arthritic changes in her lumbar spine. 2. Height is 5 feet 6 inches, weight is 171, BMI is 27. 3. Vital signs 138/96, pulse is 103, respirations 16, oxygen sat is 99. 4. Pain score is 8/10 today. 5. Denies dizziness, does not need help standing or walking. She has not fallen in the last 3 [place] [id number] PAIN MANAGEMENT CONSULTATION Name: FELISA MASON VIVIANE Room #: REG [facility]#: [id number] Admission: 04/06/19 ������������������ Attend Phys: Dory Loyd Discharge: ������������������ Date of : 75 Report #: [id number] 6. The patient is not on any blood thinners, but does not take any medicine for hypertension. 7. Opiate therapy is greater than 6 weeks; therefore, an opioid signed contract is on the chart. Her risk assessment tool is moderate and her functional assessment is 45/70. 8. Recreational drug use, she denies. She is a current smoker of cigarettes and does not drink alcohol. We did check the prescription monitoring system. The patient is under contract with our office, though I see she did fill recent narcotics from Dr. Jama Emanuel she was unsure who that is and other physicians periodically for very short prescriptions as well as filling our medications in a timely fashion. PHYSICAL EXAMINATION: GENERAL: The patient is well-developed, well-nourished white female, appears her stated age, placing her current pain score at 3/10. Her affect is appropriate. Her speech is fluent. HEENT: Normocephalic, atraumatic. Extraocular eye muscles are intact. Mucous membranes are moist. NECK: Without adenopathy or JVD. LUNGS: Clear to auscultation. MUSCULOSKELETAL: Without significant scoliosis, kyphosis or lordosis. She has pain in her lumbar spine with tenderness to the right musculature of her spine. She has radicular pain that follows the L5-S1 dermatomal distribution down her legs bilaterally. IMPRESSION: 1. History of right lumbar laminectomy and severe degenerative disk disease. 2. Spondylolisthesis. 3. Chronic pain, being treated with complex medical management using opioid medications. We reviewed the fact that opiate medications are being used to provide analgesia adequate to support activities of daily living, not attempting to achieve a specific pain score on the 0-10 Visual Analog Scale. The current opiate medications are providing sufficient analgesia to allow the patient to participate in activities of daily living. The patient is not exhibiting any aberrant behavior suggestive of drug diversion. The patient is not having any adverse reactions to medications. The patient is not suffering from daytime somnolence or mental acuity changes. The patient is managing opiate-induced constipation with appropriate nuyt-azg-crhwplh agents and dietary considerations. The patient was counseled on concern for caution with operating a motor vehicle while using opiate medications. A physical exam was performed and the patient's functional status was evaluated. All patients with back pain were advised against the bed rest greater than [address] [address] PAIN MANAGEMENT CONSULTATION Name: FELISA MASON Room #: [facility]..#: [id number] Admission: 04/06/19 ������������������ Attend Phys: Dory Loyd Discharge: ������������������ Date of : 75 Report #: [id number] days and were advised to return to normal activities. Pain score assessment was noted and the treatment plan was reviewed with the patient. All current medications, both prescribed and OTC were reviewed and reconciled on the electronic medical record. Tobacco screening was accomplished and smoking cessation was advised when indicated. BMI was noted and diet/exercise modification was recommended for all patients following outside normal parameters. I reviewed with the patient today their responsibilities to safeguard prescription medications, reviewed their responsibility to utilize medications only as prescribed by the physician. They are to seek and receive pain medications only from 1 physician group ( [facility]). They are to use 1 pharmacy and keep the clinic informed if they change pharmacies. Their responsibilities include making followup visits in a timely fashion and to avoid abrupt discontinuation of medication usage. Their responsibilities further include bringing their medications (bottles from the pharmacy with residual pills) to the visit for possible confirmation of pill counts and the patient understands it is their responsibility to submit to random drug screens to ensure both that the medications prescribed are present, and that no other controlled substances are present. All prescriptions provided today were generated electronically. PLAN: 1. We discussed treatment options with the patient today. The patient was informed because she has been unable to keep her insurance. She is unable to pay her bill when she is patient pay as well. We will work on a taper medications for her. We know that it can be expensive to come to a pain physician and have to pay doctors fee as well as a hospital facility fee. We encouraged her to go back to her primary care doctor and get her medications. Therefore, she will only be needing to pay one bill, the physician's bill. The patient verbalizes understanding. She has been seen in the pain clinic and been stable on her hydrocodone for some time at 7.54 tablets a day, though there are intermittent fills from other physicians that I see according to the prescription monitoring system that. I reminded the patient that she had been under contract with our physicians, but that will no longer be necessarily since we are writing the taper schedule for her and Dr. Vaughn, her primary care doctor can write her hydrocodone 5 mg tablets as well as her gabapentin and tizanidine. 2. Scripts given today as a tapering schedule over 2 months, which is a very generous schedule from our clinic most pain physicians will taper over one month. We will hopefully provide this over 2 months, so she will not experience any withdrawal type symptoms. She is to start hydrocodone 7.5/325 three tablets a day for 2 weeks, then decrease to hydrocodone 7.5/325 two tablets a day for 2 weeks. 3. The following prescription will be hydrocodone above #70 given. The following 2 weeks, she will be on hydrocodone 5/325 two a day and then on the [address] [address] PAIN MANAGEMENT CONSULTATION Name: ISABELLAFELISA FINN VIVIANE Room #: REG [facility]#: [id number] Admission: 04/06/19 ������������������ Attend Phys: Dory Loyd Discharge: ������������������ Date of : 75 Report #: [id number] third week, she will decrease to hydrocodone 5/325 one a day until she is off. 4. Scripts were also given for tizanidine 2 mg twice a day, #60 with one additional refill and gabapentin 600 mg 3 times a day, #90 with one additional refill. 5. The patient verbalizes understanding of this taper schedule. She was given this in written form as well. 6. The patient is seen in collaboration today with Dr. Ramon Chance who is agreeable with this weaning process. ��������������������������������������������� <ELECTRONICALLY SIGNED> ���������������������������������������� By: Dory Loyd ��������������������������������������������� 04/10/19 0713 [id number] Dory Loyd /nt
== END ==
LOC: PAIN 06:43
DX: M43.16 Spondylolisthesis, lumbar region (principal); M51.36 Other intervertebral disc degeneration, lumbar region; Z79.899 Other long term (current) drug therapy; Z88.8 Allergy status to other drugs, medicaments and biological substances